=== PATIENT | male | born 1945 | race Caucasian/White ===

== ENCOUNTER → 2022-10-17 | Outpatient (CLI) | payer OTHER ==
[~2022-10-17] MED LIST: CATHETER FLUSH 10 ML SYR IV PRN; HOLD METFORMIN - RECEIVED CONTRAST 20 ML VIAL IV SCH; IOHEXOL 350 MG/ML 100 ML (OMNIPAQUE 350) VIAL IV ONE; NS 100 ML (IVPB) BAG IV ONE
[2022-10-17 14:26] LABS: CREATININE SERUM 1.23 MG/DL (0.60-1.30)
--- NOTE | 2022-10-17 16:21 | Diagnostic Imaging Report ---
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 Patient has history of prostate cancer. EXAM: Axial CT scan of the neck and chest performed with 100 mL of Omnipaque 350 IV contrast. Sagittal and coronal reformatted images are created. Auto Exposure Controls were utilized during the CT exam to meet ALARA standards for radiation dose reduction. COMPARISON: None. FINDINGS: Neck CT: There is no soft tissue mass seen involving the maxillary or mandibular regions. The oral cavity, tongue, sublingual and submandibular regions are unremarkable. The nasopharynx, oropharynx, hypopharynx, and laryngeal soft tissue structures are unremarkable. There is no significant lymphadenopathy. There is an 11 mm low-density nodule involving the left thyroid lobe region. Salivary glands are unremarkable. The vascular structures show no significant stenosis. There is mild mucosal thickening involving both maxillary sinuses. Mastoid air cells are clear. There is low density involving the inferior left cerebellar hemisphere, which may be related to chronic infarct. There are cervical spine vertebral body spurs. CT CHEST: There is mild bilateral apical pleural-parenchymal thickening/scarring. There is a calcified granuloma involving the right upper lobe and right lower lobe regions. The remainder of the lungs are clear. There is minimal atelectasis involving the posterior aspects of the lungs. There are calcified lymph nodes in the right perihilar region. Partially visualized lymph node in the precarinal region noted. There is no axillary lymphadenopathy. There is a 9 mm low area involving the left lobe of the liver in the dome, which is too small to characterize. There is a calcified granuloma involving the right lobe of the liver. There are calcified granulomas involving the spleen. There is a 6 mm low-density area involving the upper aspect of the spleen, which is too small to characterize. Multiple bilateral renal cysts are seen. The largest cyst measures 3.0 cm involving the upper medial aspect of the left kidney. The extrathoracic soft tissue structures are unremarkable. There are degenerative spurs involving the thoracic spine. IMPRESSION: 1: There is no neck soft tissue mass or mass in the maxillary or mandibular region seen on this exam. There is no bony erosive or destructive process seen. 2: There is no lymphadenopathy. 3: There are multiple calcified granulomas involving the right lung, liver, and spleen. Multiple calcified right perihilar lymph nodes are seen. There is a partially calcified precarinal lymph node. 4: There is a 9 mm low-density circumscribed area involving the left lobe of the liver and a 6 mm low-density area involving the spleen. These areas are too small to characterize. Follow-up CT scan of the abdomen in three months with and without contrast is suggested for further evaluation. 5: There is an 11 mm low-density nodule involving the left thyroid lobe. Nonemergent thyroid ultrasound would better evaluate. Dictated by: Dictated on workstation # [id number]
== END ==
LOC: RAD 13:57
PROVIDERS: ATTEND Otolaryngology Otolaryngology/Facial Plastic Surgery
DX: C03.9 Malignant neoplasm of gum, unspecified (principal); E04.1 Nontoxic single thyroid nodule; J84.10 Pulmonary fibrosis, unspecified; K75.3 Granulomatous hepatitis, not elsewhere classified; Z85.46 Personal history of malignant neoplasm of prostate
CPT/HCPCS: 36415; 70491; 71260; 82565; 84520

== ENCOUNTER 2022-10-22 10:30 | Outpatient (RCR) | payer OTHER | END 2022-11-03 | disposition home or self-care (01) | LOC: ONC 10:30 | PROVIDERS: ATTEND Radiology Radiation Oncology | DX: C05.0 Malignant neoplasm of hard palate (principal) | CPT/HCPCS: 99205 ==

== ENCOUNTER 2022-12-13 02:58 | Emergency (ER) | payer OTHER ==
[~2022-12-13] VITALS: Ht 173 cm; Wt 59.0 kg
[2022-12-13] MEDS ORDERED: OXYC5TAB (03:08)
[2022-12-13] MEDS ORDERED: THROMBIN SPRAY KIT 5,000 UNIT VIAL TOP ONE (03:15)
--- NOTE | 2022-12-13 03:25 | ED EENT ---
History of Present Illness General Chief Complaint: Post OP Complications/Pain Stated Complaint: BLEEDING FROM MOUTH SURGERY Nursing Triage Note: CANCER REMOVED FROM RIGHT UPPER REAR OF MOUTH 12/03/22 AT [facility]. GAUZE REMOVED 12/11/22 PT REPORTS BLEEDING SINCE GAUZE REMOVED. Source: patient Exam Limitations: no limitations History of Present Illness Date Seen by Provider: Dec 13, 2022 Time Seen by Provider: 03:12 Initial Comments 77-year-old male presents to the emergency department today for bleeding from a intraoral surgical site. He had a cancer removed from his upper palate on 11/23/2022. He was on Lovenox, restarted immediately after the surgery for a DVT of his right leg that was identified on 11/18/2022. He has had problems with bleeding from this area since the gauze roots removed on 12/11 and to some extent a little bit before this as well. He states [facility] remove the gauze on 12/11 and he had bleeding there after that they were unable to stop. They advised him to change gauze regularly and keep pressure and that the bleeding would eventually stop. He has had continued bleeding since that time. He denies any dizziness, lightheadedness, shortness of breath. He is continuing to take Lovenox therapeutically. Allergies and Home Medications Allergies Coded Allergies: carbamazepine (Verified Allergy, Unknown, 12/13/22) Patient Home Medication List Home Medication List Reviewed: Yes Oxycodone HCl (Oxycodone HCl) 5 Mg Tablet, (Reported) Entered as Reported by: REJI PATEL on 12/13/22 0305 Last Action: New Order Review of Systems Review of Systems Constitutional: no symptoms reported Eyes: No Symptoms Reported Ears: No Symptoms Reported Nose: no symptoms reported Mouth: other (Bleeding from surgical site) Throat: no symptoms reported Respiratory: no symptoms reported Cardiovascular: no symptoms reported Gastrointestinal: no symptoms reported Musculoskeletal: no symptoms reported Skin: no symptoms reported Neurological: No Symptoms Reported Hematologic/Lymphatic: No Symptoms Reported Immunological/Allergic: no symptoms reported Past Zrqgczk-Hjccqj-Jvpmrz Hx Patient Social History Tobacco Use?: No Substance use?: No Alcohol Use?: No Pt feels they are or have been: No Past Medical History Surgery/Hospitalization HX: ORAL CA REMOVED FROM TOP RIGHT MOUTH. Family Medical History Reviewed Nursing Family Hx No Pertinent Family Hx Physical Exam Vital Signs Vital Signs - First Documented 12/13/22 03:03 Temp 35.8 Pulse 97 Resp 16 B/P (MAP) 136/91 (106) Pulse Ox 98 O2 Delivery Room Air Height, Weight, BMI Height: '" Weight: lbs. oz. kg; 19.00 BMI Method: General Appearance: WD/WN, no apparent distress Eyes: bilateral eye normal inspection, bilateral eye PERRL, bilateral eye EOMI Nose: normal inspection Mouth/Throat: other (There is an open operative area and to the superior lateral portion of the palate posteriorly on the right side. The open areas approximately 3 cm in maximal diameter. There is some venous oozing from the area.) Neck: non-tender, supple Cardiovascular: regular rate, rhythm, no murmur Respiratory: chest non-tender, lungs clear, normal breath sounds Gastrointestinal: normal bowel sounds, soft, no organomegaly Neurologic/Psychiatric: alert, normal mood/affect, oriented x 3 Skin: normal color, warm/dry Progress/Results/Core Measures Results/Orders Lab Results Laboratory Tests Test 12/13/22 03:15 Range/Units White Blood Count 7.2 4.3-11.0 10^3/uL Red Blood Count 4.03 L 4.30-5.52 10^6/uL Hemoglobin 12.8 L 13.3-17.7 g/dL Hematocrit 38 L 40-54 % Mean Corpuscular Volume 95 80-99 fL Mean Corpuscular Hemoglobin 32 25-34 pg Mean Corpuscular Hemoglobin Concent 34 32-36 g/dL Red Cell Distribution Width 12.7 10.0-14.5 % Platelet Count 116 L 130-400 10^3/uL Mean Platelet Volume 12.3 H 9.0-12.2 fL Immature Granulocyte % (Auto) 0 % Neutrophils (%) (Auto) 71 42-75 % Lymphocytes (%) (Auto) 20 12-44 % Monocytes (%) (Auto) 7 0-12 % Eosinophils (%) (Auto) 1 0-10 % Basophils (%) (Auto) 1 0-10 % Neutrophils # (Auto) 5.1 1.8-7.8 10^3/uL Lymphocytes # (Auto) 1.5 1.0-4.0 10^3/uL Monocytes # (Auto) 0.5 0.0-1.0 10^3/uL Eosinophils # (Auto) 0.1 0.0-0.3 10^3/uL Basophils # (Auto) 0.1 0.0-0.1 10^3/uL Immature Granulocyte # (Auto) 0.0 0.0-0.1 10^3/uL My Orders Orders - ESTELLE SANDOVAL DO Cbc With Automated Diff (12/13/22 03:12) Thrombin [place] Kit (Thrombin [place] Kit) (12/13/22 03:15) Medications Given in ED Vital Signs/I&O Blood Pressure Mean: 106 Departure Communication (Admissions) I soaked gauze and topical thrombin in place pressure on the area should the patient have to maintain this. After about 30 minutes the area was hemostatic. It is friable and looks like it may bleed again. Unfortunately he is on Lovenox and cannot really stop this with his active DVT and risk of PE. Advised in person in the morning to call his dentist and tell them that they have to do something about this as it is likely to keep continuing to bleed. Advised to not blow his nose, and to be extremely careful with the area. His hemoglobin is normal. He is not tachycardic he is otherwise asymptomatic. No airway compromise. Impression Primary Impression: Postoperative bleeding from mouth Disposition: 01 HOME, SELF-CARE Condition: Stable Departure-Patient Inst. Referrals: NO,LOCAL PHYSICIAN (PCP) Primary Care Physician Patient Instructions: Bleeding After Surgery Add. Discharge Instructions: Please call your dentist first thing in the morning. If bleeding does appear to have stopped at this time however I would be surprised if it started oozing again. This will likely require the dentist to do something to fix it. Be extremely careful with the area to avoid recurrence of bleeding. If it bleeds, the gauze as previously shown. Return to the emergency department for any severe concerns. Follow-up with primary doctor, dental surgeons as discussed. ESTELLE SANDOVAL DO Dec 13, 2022 03:25
[2022-12-13 03:26] LABS: BASOPHILS # (AUTO) 0.1 10^3/uL (0.0-0.1); BASOPHILS % (AUTO) 1 % (0-10); EOSINOPHILS # (AUTO) 0.1 10^3/uL (0.0-0.3); EOSINOPHILS % (AUTO) 1 % (0-10); HEMATOCRIT 38 % (40-54); HEMOGLOBIN 12.8 g/dL (13.3-17.7); LYMPHOCYTES # (AUTO) 1.5 10^3/uL (1.0-4.0); LYMPHOCYTES % (AUTO) 20 % (12-44); MEAN CORPUSCULAR HEMOGLOBIN 32 pg (25-34); MEAN CORPUSCULAR HGB CONC 34 g/dL (32-36); MEAN CORPUSCULAR VOLUME 95 fL (80-99); MEAN PLATELET VOLUME 12.3 fL (9.0-12.2); MONOCYTES # (AUTO) 0.5 10^3/uL (0.0-1.0); MONOCYTES % (AUTO) 7 % (0-12); NEUTROPHILS # (AUTO) 5.1 10^3/uL (1.8-7.8); NEUTROPHILS % (AUTO) 71 % (42-75); PLATELET COUNT 116 10^3/uL (130-400); WHITE BLOOD COUNT 7.2 10^3/uL (4.3-11.0)
[2022-12-13 04:29] VITALS: BP 135/84
== END 2022-12-13 04:31 | disposition home or self-care (01) ==
LOC: EDUNIT# 02:58 → ER 03:01
DX: K91.841 Postprocedural hemorrhage of a digestive system organ or structure following other procedure (principal); I82.401 Acute embolism and thrombosis of unspecified deep veins of right lower extremity; Z79.01 Long term (current) use of anticoagulants; Z85.818 Personal history of malignant neoplasm of other sites of lip, oral cavity, and pharynx
CPT/HCPCS: 36415; 85025